=== PATIENT | male | born 1965 | race Caucasian/White ===

== ENCOUNTER 2021-11-13 13:38 | Emergency (ER) | payer OTHER, SELFPAY ==
[2021-11-13 14:04] VITALS: BP 132/91; PULSE 104; RESP 18; TEMP 36.7; O2SAT 96
[2021-11-13] MEDS: Lidocaine 2% Jelly 11 ML SYR UR (15:07)
[2021-11-13] MEDS: MORPHine 10 MG/ML VIAL 2 MG IVP (15:30)
--- NOTE | 2021-11-13 16:22 | W.ED.GENAD ---
Discharge Plan Disposition Patient Disposition: HOME Condition: Improving Discharge Details Clinical Impression: Acute urinary retention Primary Care Provider: Alea,Local ED Provider: Alejo Key Home Meds and New Rx's Prescriptions: Continued tamsulosin 0.4 mg Capsule 0.4 mg PO DAILY perindopril erbumine 8 mg Tablet 8 mg PO DAILY tadalafil 20 mg Tablet 20 mg PO DAILY PRN Rx Instructions: administer approximately 30min before sexual activity; do not use more than 1 dose per 24hrs amlodipine-atorvastatin 5-80 mg Tablet 1 tab PO DAILY Discharge Instructions Instructions: Urinary Retention in Men (ED), Lam Catheter Placement and Care (ED) Additional Instructions: If you have any new or significant worsening symptoms or have problems with your catheter please follow-up sooner. Please provide daily catheter care as discussed and you will need to have catheter removed in 5 to 7 days. Referrals: Primary Care Provider [Outside] - 5 days Discharge Data Discharge Date/Time-TO BE ENTERED AT DEPARTURE: 11/13/21 18:02 Medical Decision Making Acute urinary retention. Patient is from [place] and states he normally has prostate issues but has never had any issues urinating. Was seen at urgent care and sent to the emergency department due to inability to place catheter. Bladder scan showed at least 1000 mL in the bladder. Attempted to place Lam but had difficulty due to patient's discomfort so we will give IV morphine and reattempt with daily. Catheter was placed and 1500 mL was drained. Patient to go home on leg bag and follow-up with either primary care provider, urology, or ED when he returns home. After discussion of diagnosis and plan of care patient has no further needs, questions, or concerns and states clear understanding to return to the emergency department for any worsening symptoms. This documentation was generated using [employer] dictation system, please disregard any oddities of phrase or misspellings. HPI General Mode of arrival: ambulatory. Date/Time Provider Initiated Documentation: 11/13/21 14:31. Limitations to Documentation: no limitations. Information obtained by: patient, RN/MD and RN notes reviewed. History of Present Illness 56 year old M presents to the emergency department with the chief complaint of Urinary retention, described as severe, with intensity rated at 8. Quality is described as sharp, and is localized to the pelvis. Patient reports no radiation. Patient started experiencing this hour(s) (6) and it has been constant. No relieving factors improve symptom(s), No exacerbating factors reported . Patient notes no other symptoms.. Patient did receive the following treatments prior to arrival, none Related Data Home Medications Medication Instructions Recorded Confirmed amlodipine 5 mg-atorvastatin 80 mg 1 tab PO DAILY 11/13/21 11/13/21 tablet perindopril erbumine 8 mg tablet 8 mg PO DAILY 11/13/21 11/13/21 tadalafil 20 mg tablet 20 mg PO DAILY PRN 11/13/21 11/13/21 tamsulosin 0.4 mg capsule 0.4 mg PO DAILY 11/13/21 11/13/21 Allergies Allergy/AdvReac Type Severity Reaction Status Date / Time No Known Allergies Allergy Unverified 11/13/21 14:14 General Stated Complaint: Urinary JUAN: 3 Review of Systems Constitutional Constitutional: Denies body ache(s), Denies chills, Denies fever(s), Denies malaise and Denies weakness Cardiovascular Cardiovascular: Denies chest pain Respiratory Respiratory: Reports system reviewed and no additional complaints, except as documented Gastrointestinal Gastrointestinal: Denies abdominal pain, Denies nausea and Denies vomiting Genitourinary Genitourinary: Reports as per HPI, Denies hematuria, Reports difficulty urinating, Reports dysuria, Reports urinary frequency and Reports urinary urgency Neurologic Neurologic: Denies confusion and Denies weakness Psychiatric Psychiatric: Denies confusion PFSH All Active Problems (Updated 11/14/21 @ 11:22 by Alejo Key NP) BPH (benign prostatic hyperplasia) (Chronic) Acute urinary retention (Acute) Social History Smoking/Tobacco Use Status: Never Smoking risk assessment performed?: Yes Alcohol Intake: current Alcohol Intake frequency: a few times a week Drug use: Never Substance use type: does not use Do you feel safe at home: Yes Do you feel safe in your relationship?: Yes Exam Const General: cooperative Orientation: alert, awake and oriented x3 Resp Effort & Inspection: normal respiratory effort and able to speak in complete sentences GI Palpation: tender suprapubicly Back/Spine/Pelvis Back: no CVA tenderness Neuro General: patient alert, patient awake and patient oriented x3 Extrem General: capillary refill normal Course Vital Signs Vital signs: Vital Signs Temperature 36.7 C 11/13/21 14:04 Pulse 104 H 11/13/21 14:04 Respiratory Rate 18 11/13/21 14:04 Blood Pressure 132/91 H 11/13/21 14:04 Pulse Oximetry 96 11/13/21 14:04 Temperature 36.7 C 11/13/21 14:04 Temperature Source Oral 11/13/21 14:04 Pulse 104 H 11/13/21 14:04 Respiratory Rate 18 11/13/21 14:04 Respiratory Effort Non-Labored 11/13/21 14:12 Blood Pressure 132/91 H 11/13/21 14:04 Blood Pressure Position Sitting 11/13/21 14:04 Pulse Oximetry 96 11/13/21 14:04 Oxygen Delivery Method Room Air 11/13/21 14:04 Oxygen Flow Rate 0 11/13/21 14:04 Pain Level 7 11/13/21 14:12 PAWSS Have you Been Recently Intoxicated or Drunk Within the Last 30 days?: No Have you Ever Experienced Previous Episodes of Alcohol Withdrawal?: No Have you ever Experienced Withdrawal Seizures?: No Have you ever Experienced Delirium Tremens(DT)s?: No Have you ever undergone Alcohol Rehabilitation Treatment (i.e, inpt ot outpatient treatment programs)?: No Have you ever Experienced Blackouts?: No Have you ever Combined Alcohol with other Downers within the last 90 days?: No Have you ever Combined Alcohol with any other Substance of Abuse during the last 90 days?: No Result: 0
[2021-11-13 16:43] VITALS: BP 143/83; PULSE 83; RESP 22; O2SAT 96
--- NOTE | 2021-11-13 16:45 | NUR.NOTE ---
Nursing Note: Verified with ELPIDIO Key that pt is OK to drive himself home after receiving morphine during his ER visit. Pt is ambulatory, alert and oriented x4, does not appear impaired in any way.
== END 2021-11-13 18:02 | disposition home or self-care (01) ==
PROVIDERS: Emergency Provider Nurse Practitioner Family
DX: R33.8 Other retention of urine (principal); N40.1 Benign prostatic hyperplasia with lower urinary tract symptoms
CPT/HCPCS: 51702; 96374; 99284; J2270